=== PATIENT | male | born 1990 | race Caucasian/White ===

== ENCOUNTER 2017-02-01 00:13 | Emergency (ER) | payer SELFPAY ==
[2017-02-01] MEDS ORDERED: TORAdol 30 mg Injection IV ONE (00:37)
[2017-02-01] MEDS ORDERED: Sodium Chloride 0.9% 1000 ML 1,000 ML IV STA (00:37)
[2017-02-01] MEDS ORDERED: TORAdol 30 mg Injection ONE (00:40)
[2017-02-01] MEDS ORDERED: Sodium Chloride 0.9% 1000 ML 1,000 ML ONE (00:40)
--- NOTE | 2017-02-01 00:42 | ERPHSYRPT ---
- History of Present Illness Time Seen by Provider: 02/01/17 00:32 Historian: patient Exam Limitations: no limitations Patient Subjective Stated Complaint: PUSHING AND PULLING AT WORK. STATES PAIN IN LEFT GROIN. TOMMIE WAS DIAGNOSED WITH A HERNIA 3 MONTHS AGO. Triage Nursing Assessment: STATES PAIN IN LEFT GROIN AFTER PUSHING AND PULLING AT WORK. PAIN IN PALPATION TO LEFT GROIN AREA. + BSX4. DENEIS URINARY SYMPTOMS. STAATES NO DIFFICULTIES WITH BMS. Physician History: 26-year-old white male who states he has a history of a inguinal hernia on the left he arrives with complaint of pain in the left groin symptoms since 10:00 he states he was pulling at work when he began to experience pain. He has no nausea no vomiting no melena no hematochezia. Past medical history includes asthma. Past surgical history includes tonsillectomy adenoidectomy, cholecystectomy. Social history patient denies tobacco alcohol or illicit drug use Timing/Duration: today (10:00 this evening) Activities at Onset: other (pulling at work) Abdominal Pain Onset Location: LLQ Pain Radiation: other (left groin) Severity of Pain-Max: moderate Severity of Pain-Current: moderate Modifying Factors: Improves With: nothing Associated Symptoms: other (pain left groin), No back, No chest pain, No diaphoresis, No diarrhea, No fever/chills, No fatigue, No headache, No heartburn , No loss of appetite, No nausea, No neck pain, No rash, No shortness of breath , No syncope, No testicular pain, No vomiting, No weakness Previous symptoms: other (patient with known history of hernia states he found out 3 months ago) Allergies/Adverse Reactions: Penicillins Allergy (Verified 02/01/17 00:30) Home Medications: No Reportable Medications [No Reported Medications] 02/01/17 [History] - Review of Systems Constitutional: No Fever, No Chills Eyes: No Symptoms Ears, Nose, & Throat: No Symptoms Respiratory: No Cough, No Dyspnea Cardiac: No Chest Pain, No Edema, No Syncope Abdominal/Gastrointestinal: Abdominal Pain, Other (left lower abdominal pain and groin pain), No Nausea, No Vomiting, No Diarrhea, No Constipation, No Hematemesis, No Hematochezia, No Melena, No Dysphagia, No Appetite Changes Genitourinary Symptoms: No Dysuria, No Frequency, No Hematuria, No Hesitancy, No Incontinence, No Urgency, No Flank Pain, No Testicle Pain Musculoskeletal: No Back Pain, No Neck Pain Skin: No Rash Neurological: No Dizziness, No Focal Weakness, No Sensory Changes Psychological: No Symptoms Endocrine: No Symptoms All Other Systems: Reviewed and Negative - Past Medical History Pertinent Past Medical History: Yes Respiratory History: Asthma - Past Surgical History Past Surgical History: Yes Gastrointestinal: Cholecystectomy - Social History Smoking Status: Current every day smoker Drug Use: none Patient Lives Alone: No - Nursing Vital Signs Nursing Vital Signs: Initial Vital Signs Pulse Rate 78 02/01/17 00:19 Respiratory Rate 16 02/01/17 00:19 Blood Pressure 137/90 02/01/17 00:19 O2 Sat by Pulse Oximetry 98 02/01/17 00:19 Pain Scale Pain Intensity 6 - Physical Exam General Appearance: mild distress Eye Exam: PERRL/EOMI, eyes nml inspection Ears, Nose, Throat Exam: normal ENT inspection, pharynx normal, moist mucous membranes Neck Exam: normal inspection, non-tender, supple, full range of motion Respiratory Exam: normal breath sounds, lungs clear, No respiratory distress Cardiovascular Exam: regular rate/rhythm, normal heart sounds Gastrointestinal/Abdomen Exam: soft, normal bowel sounds, tenderness (tender left lower quadrant abdomen, positive bowel sounds, cannot feel palpable hernia) , No hernia Male Genitalia Exam: normal genitalia, other (normal male genitalia testicles descended bilaterally,No palpable hernia but tender left lower quadrant), No testicular tenderness Back Exam: normal inspection, normal range of motion, No CVA tenderness, No vertebral tenderness Extremity Exam: normal inspection, normal range of motion, pelvis stable Neurologic Exam: alert, oriented x 3, cooperative, normal mood/affect, nml cerebellar function, sensation nml, No motor deficits Skin Exam: normal color, warm, dry SpO2 Interpretation: normal (98%) SpO2: 98 Oxygen Delivery: Room Air - Course Nursing assessment & vital signs reviewed: Yes - CT Exams Abdomen/Pelvis CT Interpretation: Tele-radiologist Report (CT abdomen and pelvis: Left inguinal fat-containing 2.5 cm hernia) Ordered Tests: Active Orders 24 hr Category Date Time Status IV Insertion STAT Care 02/01/17 00:36 Active ABDOMEN AND PELVIS W CONTRAST [CT] Stat Exams 02/01/17 01:14 Ordered CBC W DIFF Stat Lab 02/01/17 00:45 Completed CMP Stat Lab 02/01/17 00:45 Completed UA W/RFX UR CULTURE Stat Lab 02/01/17 00:50 Completed Medication Summary Discontinued Medications Generic Name Dose Route Start Last Admin Trade Name Carolann PRN Reason Stop Dose Admin Sodium Chloride 1,000 mls @ 999 mls/hr 02/01/17 00:37 02/01/17 00:43 Sodium Chloride 0.9% 1000 Ml IV 02/01/17 01:37 999 mls/hr .Q1H1M STA Administration Sodium Chloride Confirm 02/01/17 00:40 Sodium Chloride 0.9% 1000 Ml Administered 02/01/17 00:41 Dose 1,000 mls @ ud .ROUTE .STShoptiques-Maimai ONE Ketorolac Tromethamine 30 mg 02/01/17 00:37 02/01/17 00:42 Toradol 30 Mg Injection IV 02/01/17 00:38 30 mg STAT ONE Administration Ketorolac Tromethamine Confirm 02/01/17 00:40 Toradol 30 Mg Injection Administered 02/01/17 00:41 Dose 30 mg .ROUTE .STK-MED ONE Lab/Rad Data: Laboratory Result Diagrams 02/01/17 00:45 02/01/17 00:45 Laboratory Results 02/01/17 02/01/17 02/01/17 Range/Units 00:50 00:45 00:45 WBC 6.2 (4.0-10.5) K/mm3 RBC 5.17 (4.1-5.6) M/mm3 Hgb 15.7 (12.5-18.0) gm/dl Hct 46.4 (42-50) % MCV 89.7 (78-100) fl MCH 30.4 (26-32) pg MCHC 33.8 (32-36) g/dl RDW 13.7 (11.5-14.0) % Plt Count 214 (150-450) K/mm3 MPV 9.1 (6-9.5) fl Gran % 42.5 (36.0-66.0) % Lymphocytes % 43.8 (24.0-44.0) % Monocytes % 11.5 (0.0-12.0) % Eosinophils % 1.9 (0.00-5.0) % Basophils % 0.3 (0.0-0.4) % Basophils # 0.02 (0-0.4) Sodium 140 (136-145) mEq/L Potassium 4.0 (3.5-5.1) mEq/L Chloride 105 (98-107) mEq/L Carbon Dioxide 27.4 (21-32) mEq/L Anion Gap 11.7 (5-15) MEQ/L BUN 14 (9-20) mg/dL Creatinine 0.80 (0.55-1.30) mg/dl Estimated GFR > 60 ML/MIN Glucose 100 (70-110) MG/DL Calcium 8.8 (8.5-10.1) mg/dL Total Bilirubin 0.40 (0.2-1.0) mg/dL AST 22 (15-37) U/L ALT 35 (12-78) U/L Alkaline Phosphatase 79 (46-116) U/L Serum Total Protein 7.0 (6.4-8.2) gm/dL Albumin 3.8 (3.4-5.0) g/dL Ur Collection Type CLEAN CATCH Urine Color YELLOW (YELLOW) Urine Appearance CLEAR (CLEAR) Urine pH 5.0 (5-6) Ur Specific [place] 1.025 (1.005-1.025) Urine Protein NEGATIVE (Negative) Urine Ketones NEGATIVE (NEGATIVE) Urine Blood NEGATIVE (0-5) Erick/ul Urine Nitrite NEGATIVE (NEGATIVE) Urine Bilirubin NEGATIVE (NEGATIVE) Urine Urobilinogen NORMAL (0-1) mg/dL Ur Leukocyte Esterase NEGATIVE (NEGATIVE) Urine Culture Reflexed NO (NO) Urine Glucose NEGATIVE (NEGATIVE) mg/dL Specimen Received 02/01/17 0050 - Progress Progress: improved Progress Note: 02/01/17 00:41 This is a 26-year-old white male who states he has a history of a left inguinal hernia. He states he was lifting at work and felt pain in his left groin he is having pain in his left lower abdomen radiating to his left groin. He is tender with palpation in the left lower abdomen and left groin. Testicles are descended bilaterally there is no evidence of torsion. I cannot feel a hernia but he is quite tender with palpation in the left lower quadrant Will go ahead and obtain appropriate laboratory studies and consider CT of the abdomen. Will give patient IV fluids and Toradol. 02/01/17 02:06 Patient with a 2.5 cm fat-containing left inguinal hernia. Will discharge - Departure Time of Disposition: 02:06 Departure Disposition: Home Clinical Impression: Left inguinal hernia Abdominal pain Qualifiers: Abdominal location: left lower quadrant Qualified Code(s): R10.32 - Left lower quadrant pain Condition: Fair Critical Care Time: No Referrals: ANNABELLE STEVE MD [Primary Care Provider] - Additional Instructions: Return home. No heavy lifting.avoid strenuous pushing or pulling. Clear fluids only 24-48 hours if abdominal pain. Advil [id number] 3 tablets orally every 6 hours as needed for pain. Follow-up with your company physician or family physician. Return for acute distress or for severe symptoms
[2017-02-01 00:49] LABS: BASOPHIL % 0.3 % (0.0-0.4); Eosinophil % 1.9 % (0.00-5.0); Granulocytes % 42.5 % (36.0-66.0); Lymphocytes % 43.8 % (24.0-44.0); Mean Cell Volume 89.7 fl (78-100); Mean Corpuscular Hemoglobin 30.4 pg (26-32); Mean Platelet Volume 9.1 fl (6-9.5); Monocytes % 11.5 % (0.0-12.0); Platelet Count 214 K/mm3 (150-450); Red Blood Count 5.17 M/mm3 (4.1-5.6); Red Cell Distribution Width 13.7 % (11.5-14.0); White Blood Count 6.2 K/mm3 (4.0-10.5)
[2017-02-01 00:59] LABS: Collection Type CLEAN CATCH; Glucose NEGATIVE (NEGATIVE); Leukocyte Esterase NEGATIVE (NEGATIVE)
[2017-02-01 01:00] LABS: ADD URINE CULTURE? NO (NO); Bilirubin NEGATIVE (NEGATIVE); Blood NEGATIVE Ery/ul (0-5); COMPLETE URINE MICROSCOPIC? NO
[2017-02-01 01:11] LABS: ALBUMIN 3.8 g/dL (3.4-5.0); ALKALINE PHOSPHATASE 79 U/L (46-116); ANION GAP 11.7 MEQ/L (5-15); BLOOD UREA NITROGEN 14 mg/dL (9-20); CHLORIDE 105 mEq/L (98-107); Carbon Dioxide 27.4 mEq/L (21-32); Glucose 100 MG/DL (70-110); SGOT/AST 22 U/L (15-37); SGPT/ALT 35 U/L (12-78); SODIUM 140 mEq/L (136-145)
[2017-02-01 02:08] VITALS: O2SAT 98
[2017-02-01 02:23] VITALS: BP 124/86; PULSE 70
--- NOTE | 2017-02-01 09:05 | XRAY ---
Indication: Left lower quadrant abdominal pain. Multiple contiguous axial images obtained through the abdomen and pelvis using 80 cc Isovue 370 contrast only. Comparison: None Lung bases demonstrates a few calcified granulomas. No infiltrate or effusion. Heart is not enlarged. Noncontrasted stomach and bowel loops appear nonobstructed. Mild diffuse scattered colonic fecal debris. Normal appendix. Previous cholecystectomy. No free fluid/air. Remaining liver, pancreas, spleen, adrenal glands, kidneys, ureters, bladder, and aorta appear unremarkable. No pathologic retroperitoneal lymphadenopathy. Osseous structures intact. Small fatty left inguinal hernia. Impression: 1. Mild fecal stasis without obstruction. 2. Fatty left inguinal hernia. 3. No acute intra-abdominal/pelvic abnormalities. Comment: Preliminary interpretation was made by [facility]. No critical discrepancy. CT DI 23.57
== END 2017-02-01 02:24 | disposition home or self-care (01) ==
LOC: ED 00:13
DX: R10.32 Left lower quadrant pain (principal); K40.90 Unilateral inguinal hernia, without obstruction or gangrene, not specified as recurrent; X50.9XXA Other and unspecified overexertion or strenuous movements or postures, initial encounter; Y92.69 Other specified industrial and construction area as the place of occurrence of the external cause
CPT/HCPCS: 36000; 36415; 74177; 80053; 81002; 85025; 96360; 96374; 99284; J1885

== ENCOUNTER 2019-07-13 12:43 | Emergency (ER) | payer BC, MEDICAID ==
[2019-07-13 12:55] VITALS: O2SAT 99
--- NOTE | 2019-07-13 13:04 | ERPHSYRPT ---
- History of Present Illness Time Seen by Provider: 07/13/19 12:55 Source: patient Exam Limitations: no limitations Patient Subjective Stated Complaint: Pt states "I think I might have an STD. My penis is swollen and it really vargas when I pee. I have been taking AZO but it is not helping." Triage Nursing Assessment: PT presented alert and oriented X 3, skin pwd Pt ambulates with an upright steady gait, able to speak in clear full sentences tp in no apparent respiratory distress. Physician History: This is a 29-year-old white male who is here because he feels he might have a sexually transmitted disease. Patient is sexually active with 2 individual females. Neither 1 of those have had any symptoms. Patient states for the last 2 days he has had burning with urination and a slightly swollen head of his penis. He is also had some mild, small amount of penile discharge that his whitish. He said he is never had anything like this in the past. Patient states that he is allergic to penicillin but has taken Keflex in the past without any problems. Timing/Duration: day(s) (2) Activites at Onset: none Quality: burning Onset Location: other Pain Radiation: none (Head of penis) Severity of Pain-Max: mild Severity of Pain-Current: mild Associated Symptoms: dysuria, other (Whitish penile discharge), No abdominal pain, No fever, No chills Prior abdominal problems: none Sexual intercourse history: multiple partners (2) Allergies/Adverse Reactions: Penicillins Allergy (Verified 02/01/17 00:30) Hx Tetanus, Diphtheria Vaccination/Date Given: No Hx Influenza Vaccination/Date Given: No Hx Pneumococcal Vaccination/Date Given: No Immunizations Up to Date: Yes - Past Medical History Pertinent Past Medical History: Yes Neurological History: No Pertinent History ENT History: No Pertinent History Cardiac History: No Pertinent History Respiratory History: Asthma Endocrine Medical History: No Pertinent History Musculoskeletal History: No Pertinent History GI Medical History: No Pertinent History History: No Pertinent History Psycho-Social History: No Pertinent History Male Reproductive Disorders: No Pertinent History - Past Surgical History Past Surgical History: Yes Neuro Surgical History: No Pertinent History Cardiac: No Pertinent History Respiratory: No Pertinent History Gastrointestinal: Cholecystectomy Genitourinary: No Pertinent History Musculoskeletal: No Pertinent History Male Surgical History: No Pertinent History - Social History Smoking Status: Current every day smoker How long have you smoked: years Exposure to second hand smoke: Yes Drug Use: none Patient Lives Alone: No - Review of Systems Constitutional: No Symptoms Eyes: No Symptoms Ears, Nose, & Throat: No Symptoms Respiratory: No Symptoms Cardiac: No Symptoms Abdominal/Gastrointestinal: No Symptoms Genitourinary Symptoms: Dysuria, Penile Discharge (Mild whitish) Musculoskeletal: No Symptoms Neurological: No Symptoms Psychological: No Symptoms Endocrine: No Symptoms Hematologic/Lymphatic: No Symptoms Immunological/Allergic: No Symptoms All Other Systems: Reviewed and Negative - Nursing Vital Signs Nursing Vital Signs: Initial Vital Signs Temperature 98.4 F 07/13/19 12:51 Pulse Rate 101 H 07/13/19 12:51 Respiratory Rate 18 07/13/19 12:51 Blood Pressure 125/78 07/13/19 12:51 O2 Sat by Pulse Oximetry 99 07/13/19 12:51 Pain Scale Pain Intensity 0 - Physical Exam General Appearance: no apparent distress, alert, anxiety Eye Exam: PERRL/EOMI, eyes nml inspection Ears, Nose, Throat Exam: normal ENT inspection, moist mucous membranes Neck Exam: normal inspection, non-tender, supple, full range of motion Respiratory Exam: airway intact, No chest tenderness, No respiratory distress Gastrointestinal/Abdomen Exam: No tenderness Rectal Exam: not done Male Genital Exam: urethral discharge, No inguinal tenderness, No inguinal lymphadenopathy Back Exam: normal inspection, normal range of motion, No CVA tenderness, No vertebral tenderness Extremity Exam: normal inspection, normal range of motion, pelvis stable Neurologic Exam: alert, oriented x 3, cooperative, manager transmission II-XII nml as tested, nml cerebellar function, nml station & gait Skin Exam: normal color, warm Lymphatic Exam: No adenopathy SpO2 Interpretation: normal SpO2: 99 O2 Delivery: Room Air - Course Nursing assessment & vital signs reviewed: Yes Ordered Tests: Active Orders 24 hr Category Date Time Status CULTURE,URINE Stat Lab 07/13/19 13:10 Received UA W/RFX UR CULTURE Stat Lab 07/13/19 13:10 Completed Medication Summary Discontinued Medications Generic Name Dose Route Start Last Admin Trade Name Yogeshq PRN Reason Stop Dose Admin Azithromycin 1,000 mg 07/13/19 13:16 07/13/19 13:35 Zithromax 250 Mg Tablet PO 07/13/19 13:17 1,000 mg STAT ONE Administration Azithromycin Confirm 07/13/19 13:30 Zithromax 250 Mg Tablet Administered 07/13/19 13:31 Dose 1,000 mg .ROUTE .STK-MED ONE Ceftriaxone Sodium 1,000 mg 07/13/19 13:15 07/13/19 13:35 Rocephin 1000 Mg Inj IM 07/13/19 13:16 1,000 mg STAT ONE Administration Ceftriaxone Sodium Confirm 07/13/19 13:30 Rocephin 1000 Mg Inj Administered 07/13/19 13:31 Dose 1,000 mg .ROUTE .STK-MED ONE Lab/Rad Data: Laboratory Results 07/13/19 Range/Units 13:10 Urine Color SUE (YELLOW) Urine Appearance SLIGHTLY CLOUDY (CLEAR) Urine pH 5.0 (5-6) Ur Specific [place] 1.028 (1.005-1.025) Urine Protein NEGATIVE (Negative) Urine Ketones TRACE (NEGATIVE) Urine Blood SMALL (0-5) Erick/ul Urine Nitrite NEGATIVE (NEGATIVE) Urine Bilirubin SMALL (NEGATIVE) Urine Urobilinogen 4 (0-1) mg/dL Ur Leukocyte Esterase MODERATE (NEGATIVE) Urine WBC (Auto) >100 (0-5) /HPF Urine RBC (Auto) 26-50 (0-2) /HPF U Epithel Cells (Auto) RARE (FEW) /HPF Urine Bacteria (Auto) FEW (NEGATIVE) /HPF Urine Mucus (Auto) SLIGHT (NEGATIVE) /HPF Urine Culture Reflexed YES (NO) Urine Glucose NEGATIVE (NEGATIVE) mg/dL - Progress Progress: unchanged Counseled pt/family regarding: lab results, diagnosis, need for follow-up - Departure Departure Disposition: Home Clinical Impression: UTI (urinary tract infection), Penile discharge Condition: Stable Critical Care Time: No Referrals: ANNABELLE STEVE MD [Primary Care Provider] - Additional Instructions: Drink plenty of fluids. Abstain from sexual intercourse and activity for the next 2 weeks. You will be notified about your laboratory results. If you have not heard from us in the next 48 hours, contact us for follow-up report. Prescriptions: Ciprofloxacin [Cipro 500 MG] 500 mg PO BID #14 tablet Metronidazole 500 mg [Flagyl 500 MG] 500 mg PO TID #21 tablet
[2019-07-13] MEDS ORDERED: Rocephin 1000 MG INJ IM ONE (13:15)
[2019-07-13] MEDS ORDERED: Zithromax 250 MG TABLET PO ONE (13:16)
[2019-07-13 13:27] LABS: Appearance SLIGHTLY CLOUDY (CLEAR); Bacteria FEW /HPF (NEGATIVE); Bilirubin SMALL (NEGATIVE); Blood SMALL Ery/ul (0-5); Epithelial Cells RARE /HPF (FEW); Glucose NEGATIVE (NEGATIVE); Ketones TRACE (NEGATIVE); Leukocyte Esterase MODERATE (NEGATIVE); Mucus SLIGHT /HPF (NEGATIVE); Nitrite NEGATIVE (NEGATIVE); Protein,Urine Dip NEGATIVE (Negative); RBC 26-50 /HPF (0-2); Specific Gravity 1.028 (1.005-1.025); Urobilinogen 4 mg/dL (0-1); WBC >100 /HPF (0-5)
[2019-07-13] MEDS ORDERED: Rocephin 1000 MG INJ ONE (13:30)
[2019-07-13] MEDS ORDERED: Zithromax 250 MG TABLET ONE (13:30)
[2019-07-13 13:47] VITALS: BP 110/75; PULSE 90
[2019-07-13 15:14] LABS: CHLAMYDIA DNA NOT DETECTED (NEGATIVE); GC DNA Probe NOT DETECTED (NEGATIVE)
== END 2019-07-13 13:58 | disposition home or self-care (01) ==
LOC: ED 12:43
DX: N39.0 Urinary tract infection, site not specified (principal); R36.9 Urethral discharge, unspecified
CPT/HCPCS: 81001; 87086; 87491; 87591; 96372; 99284; J0696; A9270-GY

== ENCOUNTER 2024-06-28 21:06 | Emergency (ER) | payer BC, MEDICAID, OTHER ==
[2024-06-28 21:29] VITALS: RESP 18; TEMP 98.1
--- NOTE | 2024-06-28 22:54 | ERPHSYRPT ---
- History of Present Illness Source: patient Exam Limitations: no limitations Patient Subjective Stated Complaint: pt began experiencing sx of allergic reaction at 2014. began to feel wheezing at that time along with rash over entire body. one year ago experienced an allergic reaction that caused him to pass out. Triage Nursing Assessment: no swelling of throat or sob. pt has a painful itchy rash all over body which he said is already starting to feel better Physician History: Patient had a acute onset of hives. He has had this happen once or twice before. The last time he did it he had a syncopal episode so he decided to come in and get checked out. There is been no new exposures. He said that he did not have any edema of his mouth or pharynx. He is not having respiratory difficulties at this time. He said it first he felt a little bit short of breath but thinks it may have been some panic. Nothing makes his symptoms better or worse. He took 525 mg Benadryl's before he came. He called EMS they gave him a albuterol treatment and 125 mg of Solu-Medrol and an EpiPen injection. He was not having anaphylaxis or anything like that but they were just doing that prophylactically because of the problem that he had in the past which actually was not anaphylaxis. It was just a syncopal episode. He has a hives all over his abdomen and chest. Associated Symptoms: denies symptoms Allergies/Adverse Reactions: Penicillins Allergy (Verified 06/28/24 22:15) Hx Tetanus, Diphtheria Vaccination/Date Given: No Hx Influenza Vaccination/Date Given: No Hx Pneumococcal Vaccination/Date Given: No Immunizations Up to Date: No Travel Risk - International Travel Have you traveled outside of the country in past 3 weeks: No - Emerging Infectious Disease Are you exhibiting symptoms associated with any current EIDs: No - Review of Systems Constitutional: No Symptoms Eyes: No Symptoms Ears, Nose, & Throat: No Symptoms Respiratory: No Symptoms Cardiac: No Symptoms All Other Systems: Reviewed and Negative - Past Medical History Pertinent Past Medical History: Yes Neurological History: No Pertinent History ENT History: No Pertinent History Cardiac History: No Pertinent History Respiratory History: Asthma Endocrine Medical History: No Pertinent History Musculoskeletal History: No Pertinent History GI Medical History: No Pertinent History History: No Pertinent History Psycho-Social History: No Pertinent History Male Reproductive Disorders: No Pertinent History - Past Surgical History Past Surgical History: Yes Neuro Surgical History: No Pertinent History Cardiac: No Pertinent History Respiratory: No Pertinent History Gastrointestinal: Cholecystectomy Genitourinary: No Pertinent History Musculoskeletal: No Pertinent History Male Surgical History: No Pertinent History - Social History Smoking Status: Current every day smoker How long have you smoked: years Exposure to second hand smoke: Yes Drug Use: none - Social Determinants of Health Will the patient participate in the screening: Declined to provide - Nursing Vital Signs Nursing Vital Signs: Initial Vital Signs Temperature 98.1 F 06/28/24 21:08 Pulse Rate 87 06/28/24 21:08 Respiratory Rate 18 06/28/24 21:08 Blood Pressure 120/70 06/28/24 21:08 O2 Sat by Pulse Oximetry 94 L 06/28/24 21:08 Pain Scale Pain Intensity 0 - Physical Exam General Appearance: no apparent distress Eye Exam: PERRL/EOMI, eyes nml inspection Ears, Nose, Throat Exam: normal ENT inspection, TMs normal, pharynx normal Neck Exam: normal inspection, non-tender, supple, full range of motion Respiratory Exam: normal breath sounds, chest tenderness, lungs clear, No respiratory distress Cardiovascular Exam: regular rate/rhythm, normal heart sounds Gastrointestinal/Abdomen Exam: soft, normal bowel sounds Skin Exam: other (Hives on the chest and abdomen) SpO2: 94 - Course Nursing assessment & vital signs reviewed: Yes Ordered Tests: Active Orders 24 hr Category Date Time Status EKG-ER Only STAT Care 06/28/24 23:06 Active TROPONIN Q4H Lab 06/28/24 23:32 Completed TROPONIN Q4H Lab 06/29/24 03:30 Ordered TROPONIN Q4H Lab 06/29/24 07:30 Ordered Medication Summary Discontinued Medications Generic Name Dose Route Start Last Admin Trade Name Freq PRN Reason Stop Dose Admin Al Hydrox/Mg Hydrox/Simethicone Confirm 06/28/24 23:54 Mag Hydrox/Al Hydrox/Simeth 30 Ml Udcup Administered 06/28/24 23:55 Dose 30 ml .ROUTE .STK-MED ONE Lidocaine HCl Confirm 06/28/24 23:54 Lidocaine Hcl 2% Viscous 15 Ml Udcup Administered 06/28/24 23:55 Dose 15 ml .ROUTE .STK-MED ONE Magnesium Hydroxide 45 ml 06/28/24 23:36 06/28/24 23:55 Mag Hydrx/Alum Hyd/Simeth/Lido 45 Ml Bottle PO 06/28/24 23:37 45 ml STAT ONE Administration Lab/Rad Data: Laboratory Results 06/28/24 Range/Units 23:32 Troponin I < 0.012 (0.000-0.033) ng/mL - Progress Progress Note: Patient was stable throughout stay. Am going to observe him for 2 hours. I am going to send him home with the instructions of taking Benadryl prophylactically for the next day or 2. He will also get a short course of prednisone.The parents will need to do a cardiac workup on him because he had an abnormality on his EKG years ago. He is not having any chest pain. We did an EKG here that showed some left axis deviation but otherwise unremarkable. Troponin was not elevated. I went to let him go home now. 06/28/24 22:49 06/29/24 00:36 - Departure Departure Disposition: Home Clinical Impression: Idiopathic urticaria Condition: Stable Critical Care Time: No Referrals: DOCTOR,NO FAMILY [Primary Care Provider] - Follow up/PCP as directed Instructions: Hailey Prescriptions: Prednisone 20 mg [Deltasone 20 mg] 20 mg PO TID #6 tablet
[2024-06-28] MEDS ORDERED: MAALOX ES 30 ML UNIT DOSE ONE (23:54)
[2024-06-28] MEDS ORDERED: XYLOCAINE VISCOUS 2% 15 ML CUP ONE (23:54)
[2024-06-28] MEDS: GI COCKTAIL 45 ML (Maalox/Lidocaine) PO ONE (23:55)
[2024-06-29 00:05] VITALS: BP 110/78; PULSE 87
[2024-06-29 00:37] VITALS: O2SAT 94
== END 2024-06-29 00:50 | disposition home or self-care (01) ==
LOC: ED 21:06
DX: L50.1 Idiopathic urticaria (principal); Z79.52 Long term (current) use of systemic steroids; Z72.0 Tobacco use
CPT/HCPCS: 36415; 84484; 93005; 99283; 99284; A9270-GY

== ENCOUNTER 2025-01-13 09:28 | Emergency (ER) | payer OTHER ==
[2025-01-13 09:38] VITALS: TEMP 97.6
[2025-01-13] MEDS ORDERED: PROVENTIL 2.5 MG/3 ML NEB IH ONE (10:22)
[2025-01-13] MEDS: PROVENTIL 2.5 MG/3 ML NEB IH ONE (10:31)
--- NOTE | 2025-01-13 10:32 | ERPHSYRPT ---
- History of Present Illness Patient Subjective Stated Complaint: patient states he's been coughing and is short of breath Triage Nursing Assessment: patient walkedinto ED with spouse, they have both been sick. he says he's been up coughing past few nights and its getting progressively worse. He says his ribs hurt nad hes short of breath at times cannot quit coughing Physician History: Presents with Cough and shortness of breath, he had exposure to his family members with similar type symptoms, they seem to get over his symptoms, he has had symptoms for the last 1 week, he has been taking [id number] medication without relief of symptoms, he continues to smoke,He feels short of breath Timing/Duration: week(s) (1) Activities at Onset: none Severity of Dyspnea-Max: moderate Severity of Dyspnea-Current: moderate Associated Symptoms: cough Allergies/Adverse Reactions: mold Allergy (Verified 01/13/25 10:17) Penicillins Allergy (Verified 01/13/25 10:17) dust Allergy (Uncoded 10/08/24 02:41) Home Medications: Famotidine 40 mg PO DAILY 10/01/24 [History] Acetaminophen 325 mg [Tylenol 325 mg] 325 mg PO DAILY PRN PRN 10/08/24 [History] Hx Tetanus, Diphtheria Vaccination/Date Given: Yes Hx Influenza Vaccination/Date Given: Yes Hx Pneumococcal Vaccination/Date Given: No Immunizations Up to Date: Yes Travel Risk - International Travel Have you traveled outside of the country in past 3 weeks: No - Emerging Infectious Disease Are you exhibiting symptoms associated with any current EIDs: No - Past Medical History Pertinent Past Medical History: Yes Neurological History: No Pertinent History ENT History: No Pertinent History Cardiac History: No Pertinent History Respiratory History: Asthma Endocrine Medical History: No Pertinent History Musculoskeletal History: No Pertinent History GI Medical History: GERD History: No Pertinent History Psycho-Social History: No Pertinent History Male Reproductive Disorders: No Pertinent History Other Medical History: current smoker - Past Surgical History Past Surgical History: Yes Neuro Surgical History: No Pertinent History Cardiac: No Pertinent History Respiratory: No Pertinent History Gastrointestinal: Cholecystectomy, Hernia Repair Genitourinary: No Pertinent History Musculoskeletal: No Pertinent History Male Surgical History: No Pertinent History - Social History Smoking Status: Current every day smoker How long have you smoked: 22 years Exposure to second hand smoke: No Drug Use: marijuana - Social Determinants of Health Will the patient participate in the screening: Yes Do you worry about a steady place to live?: No Do you have any problems with any of the following?: No known problems In the past 12 months,have you had to go without utilities?: No Transportation Issues: No Has anyone in your support network made you feel unsafe?: No Have you or anyone in your house had to go w/o enough food: No - Nursing Vital Signs Nursing Vital Signs: Initial Vital Signs Temperature 97.6 F 01/13/25 09:33 Pulse Rate 95 H 01/13/25 09:33 Respiratory Rate 14 01/13/25 09:33 Blood Pressure 130/87 01/13/25 09:33 O2 Sat by Pulse Oximetry 93 L 01/13/25 09:33 Pain Scale Pain Intensity 3 - Physical Exam General Appearance: no apparent distress, alert, obese Eye Exam: PERRL/EOMI, eyes nml inspection Ears, Nose, Throat Exam: hearing grossly normal, normal ENT inspection, normal pharynx, nasal congestion Neck Exam: normal inspection, non-tender, supple, full range of motion, No Brudzinski, No Kernig's, No meningismus Respiratory Exam: airway intact, wheezing (Expiratory) Cardiovascular/Chest Exam: normal heart sounds, regular rate/rhythm Abdominal/Gastrointestinal Exam: soft, normal bowel sounds Extremity Exam: non-tender, normal range of motion, normal inspection Neurologic Exam: alert, oriented x 3, cooperative, 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, normal mood/affect Skin Exam: normal color, warm, dry SpO2 Interpretation: borderline oxygenation SpO2: 94 Comments: Poor dentition Ordered Tests: Active Orders 24 hr Category Date Time Status CHEST 1 VIEW (PORTABLE) Stat Exams 01/13/25 10:00 Completed Medication Summary Discontinued Medications Generic Name Dose Route Start Last Admin Trade Name Freq PRN Reason Stop Dose Admin Albuterol Sulfate 2.5 mg 01/13/25 10:00 01/13/25 10:31 Albuterol Sulfate 2.5 Mg/3 Ml Neb IH 01/13/25 10:01 2.5 mg STAT ONE Administration Albuterol Sulfate Confirm 01/13/25 10:22 Albuterol Sulfate 2.5 Mg/3 Ml Neb Administered 01/13/25 10:23 Dose 2.5 mg IH .STK-MED ONE - Progress Progress: improved Air Movement: fair Progress Note: 01/13/25 10:59 Clinically improved, discussed x-ray, outpatient follow-up and treatment - Departure Departure Disposition: Home Clinical Impression: Acute bronchitis Qualifiers: Bronchitis organism: unspecified organism Qualified Code(s): J20.9 - Acute bronchitis, unspecified Condition: Stable Critical Care Time: No Referrals: TACHO LEMUS PA [Primary Care Provider, UNKNOWN] - Follow up with PCP 7 days Instructions: Bronchitis in adults - ED discharge instructions Prescriptions: Prednisone 20 mg [Deltasone 20 mg] 40 mg PO DAILY 5 Days #10 tablet Albuterol Sulfate [Proair Digihaler] 90 mcg IH QID PRN #1 PRN Reason: Shortness Of Breath Albuterol 8 gm Mdi Hfa [Ventolin Hfa MDI] 8 gm IH Q4H #1 Doxycycline Hyclate 100 mg [Vibramycin 100 MG] 100 mg PO BID #14 tab
[2025-01-13 10:37] VITALS: RESP 16
--- NOTE | 2025-01-13 10:48 | XRAY ---
CLINICAL HISTORY: cough COMPARISON: No prior imaging is available for comparison. TECHNIQUE: An X-ray of the chest in an anteroposterior (AP) portable view was obtained. FINDINGS: Small calcified nodules are noted in the right upper lobe, which are likely healed granulomas. Bilateral peribronchial cuffing is present, which is likely due to bronchitis. There is no evidence of consolidation, collapse, or mass lesions identified. There is no evidence of pleural effusion or pneumothorax. The cardiac silhouette and mediastinum appear unremarkable. Both jh appear unremarkable. The osseous structures appear unremarkable, with no evidence of acute osseous abnormality. The soft tissues appear unremarkable. IMPRESSION: 1. Small calcified nodules are present in the right upper lobe, which are likely healed granulomas. 2. Bilateral peribronchial cuffing is present, which is likely due to bronchitis. 3. Clinical correlation is suggested. Electronically Signed by: Larry Elizabeth MD. (01/13/2025 10:46:36 EDT)
[2025-01-13 11:11] VITALS: O2SAT 94
[2025-01-13 11:19] VITALS: BP 97/70; PULSE 86
== END 2025-01-13 11:31 | disposition home or self-care (01) ==
LOC: ED 09:28
DX: J20.9 Acute bronchitis, unspecified (principal); R05.1 Acute cough; R06.02 Shortness of breath; Z79.52 Long term (current) use of systemic steroids; Z79.899 Other long term (current) drug therapy; Z72.0 Tobacco use

== ENCOUNTER 2025-01-19 16:46 | Emergency (ER) | payer OTHER ==
--- NOTE | 2025-01-19 17:09 | ERPHSYRPT ---
- History of Present Illness Time Seen by Provider: 01/19/25 17:09 Source: patient Exam Limitations: no limitations Physician History: This is a morbidly obese 34-year-old white male patient arrives by private vehicle with the complaint of generalized hives and rash and welts that began this morning. The patient's only new exposure is bedsheets that were taken directly from the package and placed on the bed and he slept on them. He woke up with itching rash and hives. He took Benadryl which seemed to improve his symptoms. However symptoms recurred. Patient has a history gastroesophageal reflux disease and asthma. He denies chest pain and he denies shortness of breath. He has not had any wheezing. Timing/Duration: today Quality: itchy Severity: mild (To moderate) Location: generalized Possible Causes: other (Possible contact dermatitis secondary to new bedsheets they did not wash before using) Associated Symptoms: hives Allergies/Adverse Reactions: mold Allergy (Verified 01/13/25 10:17) Penicillins Allergy (Verified 01/13/25 10:17) dust Allergy (Uncoded 10/08/24 02:41) Home Medications: Famotidine 40 mg PO DAILY 10/01/24 [History] Acetaminophen 325 mg [Tylenol 325 mg] 325 mg PO DAILY PRN PRN 10/08/24 [History] Hx Tetanus, Diphtheria Vaccination/Date Given: Yes Hx Influenza Vaccination/Date Given: Yes Hx Pneumococcal Vaccination/Date Given: No Travel Risk - International Travel Have you traveled outside of the country in past 3 weeks: No - Emerging Infectious Disease Are you exhibiting symptoms associated with any current EIDs: No - Review of Systems Constitutional: No Symptoms Eyes: No Symptoms Ears, Nose, & Throat: No Symptoms Respiratory: No Symptoms Cardiac: No Symptoms Abdominal/Gastrointestinal: No Symptoms Genitourinary Symptoms: No Symptoms Musculoskeletal: No Symptoms Skin: Pruritis, Rash Neurological: No Symptoms Psychological: No Symptoms Endocrine: No Symptoms Hematologic/Lymphatic: No Symptoms Immunological/Allergic: No Symptoms All Other Systems: Reviewed and Negative - Past Medical History Pertinent Past Medical History: Yes Neurological History: No Pertinent History ENT History: No Pertinent History Cardiac History: No Pertinent History Respiratory History: Asthma Endocrine Medical History: No Pertinent History Musculoskeletal History: No Pertinent History GI Medical History: GERD History: No Pertinent History Psycho-Social History: No Pertinent History Male Reproductive Disorders: No Pertinent History Other Medical History: current smoker - Past Surgical History Past Surgical History: Yes Neuro Surgical History: No Pertinent History Cardiac: No Pertinent History Respiratory: No Pertinent History Gastrointestinal: Cholecystectomy, Hernia Repair Genitourinary: No Pertinent History Musculoskeletal: No Pertinent History Male Surgical History: No Pertinent History - Social History Smoking Status: Current every day smoker How long have you smoked: 22 years Exposure to second hand smoke: No Drug Use: marijuana - Social Determinants of Health Will the patient participate in the screening: Yes Do you worry about a steady place to live?: No In the past 12 months,have you had to go without utilities?: No Transportation Issues: No Has anyone in your support network made you feel unsafe?: No Have you or anyone in your house had to go w/o enough food: No - Nursing Vital Signs Nursing Vital Signs: Initial Vital Signs Blood Pressure 112/80 01/19/25 17:04 O2 Sat by Pulse Oximetry 98 01/19/25 17:04 Pain Scale Pain Intensity 0 - Physical Exam General Appearance: no apparent distress, alert, anxiety, obese Eye Exam: PERRL/EOMI, eyes nml inspection Ears, Nose, Throat Exam: normal ENT inspection Neck Exam: normal inspection, non-tender, supple, full range of motion Respiratory Exam: normal breath sounds, lungs clear, airway intact, No chest tenderness, No respiratory distress Cardiovascular Exam: regular rate/rhythm, normal heart sounds, normal peripheral pulses Gastrointestinal/Abdomen Exam: No tenderness Rectal Exam: not done Back Exam: normal inspection, normal range of motion, No CVA tenderness, No vertebral tenderness Extremity Exam: normal range of motion, pelvis stable Neurologic Exam: alert, oriented x 3, cooperative, 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 Well-circumscribed. No abscess or pustules) Lymphatic Exam: No adenopathy SpO2 Interpretation: normal O2 Delivery: Room Air - Course Nursing assessment & vital signs reviewed: Yes Ordered Tests: Medication Summary Generic Name Dose Route Start Last Admin Trade Name Freq PRN Reason Stop Dose Admin Prednisone 20 mg 01/20/25 10:00 01/19/25 17:25 Prednisone 20 Mg Tablet PO 02/19/25 09:59 20 mg DAILY DORENE Administration Discontinued Medications Generic Name Dose Route Start Last Admin Trade Name Freq PRN Reason Stop Dose Admin Diphenhydramine HCl 50 mg 01/19/25 17:18 01/19/25 17:24 Diphenhydramine Hcl 25 Mg Capsule PO 01/19/25 17:19 50 mg STAT ONE Administration Diphenhydramine HCl Confirm 01/19/25 17:23 Diphenhydramine Hcl 25 Mg Capsule Administered 01/19/25 17:24 Dose 50 mg .ROUTE .STK-MED ONE Famotidine 40 mg 01/19/25 17:20 01/19/25 17:24 Famotidine 20 Mg Tablet PO 01/19/25 17:21 40 mg STAT ONE Administration Famotidine Confirm 01/19/25 17:23 Famotidine 20 Mg Tablet Administered 01/19/25 17:24 Dose 40 mg .ROUTE .STK-MED ONE Prednisone Confirm 01/19/25 17:23 Prednisone 20 Mg Tablet Administered 01/19/25 17:24 Dose 20 mg .ROUTE .STK-MED ONE - Progress Progress: improved, re-examined Progress Note: 01/19/25 18:38 My medical decision making and the assignment of low complexity of this patient's medical issue today is based on review of the patient's past medical history, review the patient's medication list, review patient drug allergy list, history present illness and physical findings on examination. The workup in this patient does not necessitate laboratory radiographic studies. Differential diagnosis includes but is not limited to idiopathic urticaria, idiopathic hives, contact dermatitis, allergic reaction Counseled pt/family regarding: diagnosis, need for follow-up Medical Desision Making - Independent Historian Additional History obtained from: Family - Risk of complications Low Risk: Low risk of morbidity from additional dx testing or treatment The pt has a mod risk of morbidity or mortality based on: Need for prescription drug management - Departure Departure Disposition: Home Clinical Impression: Contact dermatitis Condition: Stable Critical Care Time: No Referrals: TACHO LEMUS PA [Primary Care Provider, UNKNOWN] - Follow up/PCP as directed Additional Instructions: Keep skin clean. Take the Benadryl as discussed for the next 4 to 5 days. Take your other prescription medications as prescribed. Call your primary care provider tomorrow, 01/20/2025, to make arrangements for follow-up appointment for further evaluation and management. Return to the emergency department sooner if your symptoms worsen despite treatment. Prescriptions: Prednisone 10 mg [Deltasone 10 mg] 10 mg PO TID #12 tablet Famotidine 20 mg [Pepcid 20 MG] 20 mg PO DAILY #10 tablet
[2025-01-19 17:13] VITALS: PULSE 80; TEMP 97.7
[2025-01-19] MEDS ORDERED: Pepcid 20 MG ONE (17:23)
[2025-01-19] MEDS ORDERED: DELTASONE 20 MG ONE (17:23)
[2025-01-19] MEDS ORDERED: BENADRYL 25 MG CAPSULE ONE (17:23)
[2025-01-19] MEDS: Pepcid 20 MG PO ONE (17:24)
[2025-01-19] MEDS: BENADRYL 25 MG CAPSULE PO ONE (17:24)
[2025-01-19] MEDS: DELTASONE 20 MG PO SCH (17:25)
[2025-01-19 18:41] VITALS: BP 138/92; RESP 17; O2SAT 98
== END 2025-01-19 18:50 | disposition home or self-care (01) ==
LOC: ED 16:46
DX: L25.9 Unspecified contact dermatitis, unspecified cause (principal); Z79.52 Long term (current) use of systemic steroids; Z79.899 Other long term (current) drug therapy; Z72.0 Tobacco use